=== PATIENT | male | born 1950 | race Caucasian/White ===

== ENCOUNTER 2017-03-28 07:04 | Day surgery (SDC) | payer BC ==
--- NOTE | ~2017-03-28 | EGD ---
EGD REPORT [facility] 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 Estimated blood loss: None. Procedure: Pre-Anesthesia Assessment: - ASA Grade Assessment: II - A patient with mild systemic disease. After obtaining informed consent, the endoscope was passed under direct vision. Throughout the procedure, the patient's blood pressure, pulse, and oxygen saturations were monitored continuously. The Endoscope was introduced through the mouth, and advanced to the second part of duodenum. The GIF [id number] was introduced through the mouth, and advanced to the second part of duodenum. Findings: Endoscopic Finding : A medium-sized, ulcerating mass with and with no stigmata of recent bleeding was found in the lower third of the esophagus, at the gastroesophageal junction and in the cardia. The mass was partially obstructing and circumferential. The mass was extending from approximately 45 to 52 cm. There appeared to be submucosal infilration into the cardia. The GE junctino was about 47 cm The exam of the stomach was otherwise normal. The examined duodenum was endoscopically normal. Endosonographic Finding : A hypoechoic mass was found in the gastroesophageal junction and in the esophagus extending into the proximal stomach. The mass was encountered at 45 cm from the incisors 53. The lesion was circumferential. The endosonographic borders were well-defined. There was sonographic evidence suggesting invasion into the adventitia (Layer 5). Two abnormal lymph nodes were visualized in the paracardial region (level 16). The largest measured 16 mm. The nodes were hypoechoic. There was no sign of significant endosonographic abnormality in the entire pancreas. The pancreas was well visualized, the pancreatic duct EGD REPORT [address] [place]. [address] NAME: TELLY RILEY : [birth year] STATUS : REG [facility] PAT#: [id number] AGE: 66 ADM/REG DATE : 03/28/17 MR#: [id number] REPORT SERV DATE: 03/28/17 DICTATED BY: NEO YOUNG DATE: 03/28/17 REPORT STATUS : Draft TRANSCRIBED BY: [employer] DATE: 03/28/17 was well visualized from ampulla to tail, the pancreatic duct was regular in contour. There was no sign of significant endosonographic abnormality in the common bile duct. An unremarkable gallbladder was identified. There was no sign of significant endosonographic abnormality in the examined duodenum. Impression: - Partially obstructing esophageal tumor was found in the lower third of the esophagus, at the gastroesophageal junction and in the cardia. - Normal examined duodenum. - A mass was found in the gastroesophageal junction and in the esophagus. This was staged T3 N1 Mx by endosonographic criteria. - Two abnormal lymph nodes were visualized in the paracardial region (level 16). - There was no sign of significant pathology in the entire pancreas. - There was no sign of significant pathology in the common bile duct. - There was no sign of significant pathology in the examined duodenum. Recommendation: - Return to previous diet. - Continue present medications. - Return to referring physician. Procedure Code(s): --- Professional --- 98986, Esophagogastroduodenoscopy, flexible, transoral; with endoscopic ultrasound examination, including the esophagus, stomach, and either the duodenum or a surgically altered stomach where the jejunum is examined distal to the anastomosis Diagnosis Code(s): --- Professional --- D49.0, Neoplasm of unspecified behavior of digestive system K22.8, Other specified diseases of esophagus I89.9, Noninfective disorder of lymphatic vessels and lymph nodes, unspecified C15.9, Malignant neoplasm of esophagus, unspecified CPT copyright 2013 [employer]. All rights reserved. The codes documented in this report are preliminary and upon deputy clerk review may be revised to meet current compliance requirements. EGD REPORT [facility] [address] [address] NAME: TELLY RILEY : [birth year] STATUS : REG [facility] PAT#: [id number] AGE: 66 ADM/REG DATE : 03/28/17 MR#: [id number] REPORT SERV DATE: 03/28/17 DICTATED BY: NEO YOUNG DATE: 03/28/17 REPORT STATUS : Draft TRANSCRIBED BY: [employer] DATE: 03/28/17 NEO YOUNG 03/28/2017 9:17 AM Number of Addenda: 0 Note Initiated On: 03/28/2017 8:43 AM Scope Withdrawal Time 0 hours 0 minutes [address] [place], [place] [address] [address]
[~2017-03-28 07:04] MED LIST: PROTONIX PO
[2017-05-30] MEDS ORDERED: ELIQUIS 5 MG TAB5 MG PO (09:43)
[2017-06-06] MEDS ORDERED: SUCR PO (11:22)
[2017-07-07] MEDS ORDERED: ULTRAM50 PO (09:06)
[2017-07-14] MEDS ORDERED: LEVAQUIN750 MG PO (11:08)
[2017-07-14] MEDS ORDERED: NORCO1 TA1 PO (11:08)
[2017-08-04] MEDS ORDERED: PEP20 PO (09:00)
== END 2017-03-28 23:59 | disposition home or self-care (01) ==
LOC: DMU 07:04
PROVIDERS: Internal Medicine Gastroenterology
PROC: 0DJ08ZZ Inspection of Upper Intestinal Tract, Via Natural or Artificial Opening Endoscopic (ICD-10-PCS; principal; 2017-03-28 13:00)
DX: D49.0 Neoplasm of unspecified behavior of digestive system (principal); K22.8 Other specified diseases of esophagus; I89.9 Noninfective disorder of lymphatic vessels and lymph nodes, unspecified; K57.30 Diverticulosis of large intestine without perforation or abscess without bleeding; N40.0 Benign prostatic hyperplasia without lower urinary tract symptoms; R91.1 Solitary pulmonary nodule; C16.9 Malignant neoplasm of stomach, unspecified; Z88.2 Allergy status to sulfonamides
CPT/HCPCS: 78815; A9552; C1725

== ENCOUNTER 2017-07-11 08:37 | Day surgery (SDC) | payer BC ==
[~2017-07-11] VITALS: Ht 185.4 cm; Wt 79.8 kg
--- NOTE | ~2017-07-11 | PREOPHP ---
PreOp History and Physical [place] [id number] [facility] [place]. [address] NAME: KE RICHMOND : [birth year] STATUS : PRE [facility] PAT#: [id number] AGE: 66 ADM/REG DATE : MR#: [id number] REPORT SERV DATE: 07/11/17 DICTATED BY: YARY LAU III DATE: 06/25/17 REPORT STATUS : Draft TRANSCRIBED BY: [employer] DATE: 06/25/17 HISTORY OF PRESENT ILLNESS: This 66-year-old male comes to the operating room for Cut Off Simba esophagogastrectomy for a T3 N1 esophageal cancer. The patient presented in March of this year with severe dysphagia. His workup at that time showed a distal esophageal cancer, T3 N1 M0 by EUS, with extension into the stomach. The patient has completed chemotherapy and radiation therapy. He has had a good response to treatment both clinically, endoscopically, and radiographically. He has no evidence for metastatic disease. He comes now for definitive Cut Off Simba esophagogastrectomy. The fact that this is a major operation with high risk for morbidity and mortality has been fully and completely explained to patient at length prior to surgery. PAST MEDICAL HISTORY: Essentially unremarkable otherwise. PAST SURGICAL HISTORY: Includes cataract surgery. FAMILY HISTORY: Positive for breast cancer. MEDICATIONS: Pantoprazole. ALLERGIES: SULFA AND FINASTERIDE. PHYSICAL EXAMINATION: GENERAL: This is a male, in no acute distress. He is alert, oriented x3. HEENT: Unremarkable. Cranial nerves 2 through 12 normal. LUNGS: Clear. CARDIAC: Normal. ABDOMEN: Soft. Nontender. No masses. EXTREMITIES: Normal. VITAL SIGNS: Blood pressure 105/66, temperature 98.1. LABORATORY DATA: Previous workup showed evidence for a T3 N1 M0 esophageal cancer involving the distal esophagus extending into the cardia. After chemotherapy and radiation therapy, repeat endoscopy shows only thickening of this area with biopsies being negative for malignancy. PET scan shows no evidence for regional or distant disease. ASSESSMENT: A 66-year-old male with distal esophageal cancer, status post chemotherapy and radiation therapy. PLAN: The patient comes to the operating room now for Mat Simba esophagogastrectomy. The fact that this is a major operation with high risk for morbidity and mortality has been fully and completely explained to the patient's at length on several occasions prior to surgery. The procedure, risks, benefits, and alternatives, including, but not limited to the risk for bleeding, infection, enterotomy, injury to abdominal structure, postop small bowel obstruction, ileus, incisional hernia, dehiscence, anastomotic leak, resulting in sepsis and , gastroparesis, gastric bowel obstruction, complications including obstruction or leakage from the pyloroplasty site, complications related to his feeding tube including leaking or bleeding or migration, prolonged ventilator dependency. The fact that PreOp History and Physical [address] [address] NAME: KE RICHMOND : [birth year] STATUS : PRE [facility] PAT#: [id number] AGE: 66 ADM/REG DATE : MR#: [id number] REPORT SERV DATE: 07/11/17 DICTATED BY: YARY LAU III DATE: 06/25/17 REPORT STATUS : Draft TRANSCRIBED BY: NANCY DATE: 06/25/17 his nutritional habits will be altered permanently and unforeseen complications including deep venous thrombosis, pulmonary embolus, myocardial infarction, stroke, pneumonia, , have been fully and completely explained to the patient and his prior to surgery. The fact this is a major operation with high risk for morbidity and mortality have been explained. The patient and his had questions, which were answered. They clearly understand the risks and agreed to surgery as planned. JITENDRA/NANCY Yary Lau III, M.D. / [id number] CC: MD Sp Francois MD
--- NOTE | ~2017-07-11 | OP ---
Record Of Operation [facility] [address]. [address] NAME: KE RILEY : [birth year] STATUS : [facility]#: [id number] AGE: 66 ADM/REG DATE : 07/11/17 MR#: [id number] REPORT SERV DATE: 07/11/17 DICTATED BY: JUSTYN BLISS DATE: 07/11/17 REPORT STATUS : Draft TRANSCRIBED BY: MODL DATE: 07/11/17 DATE OF PROCEDURE: 07/11/2017 TITLE OF OPERATION: Cystourethroscopy, left retrograde pyelogram, left ureteroscopy, placement of a 6 x 28 left ureteral stent. PREOPERATIVE DIAGNOSIS: Left hydronephrosis. POSTOPERATIVE DIAGNOSIS: Left hydronephrosis. INDICATIONS: Mr. Riley is a 66-year-old male with history of gastric cancer, status post radiation. He is going to have a combined abdominal thoracic procedure with Dr. Sesay and Dr. Calle. He has new onset left flank pain with hydronephrosis. He has had no hematuria. He is here for endoscopic evaluation. ANESTHESIA: General. COMPLICATIONS: None. IMPLANTS: 1. 18-Comoran coude catheter. 2. 6 x 28 left ureteral stent. SPECIMENS: Urine for cytology. NARRATIVE: The patient was brought to the operating room, identified by his wristband. General anesthesia was induced. Levaquin was given for preoperative antibiotics. He was placed in dorsal lithotomy position and prepped and draped in sterile fashion. A cystoscope was placed into his urethra and into his bladder. 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 The left ureteral orifice was identified and cannulated with a 5-Comoran open-ended catheter. Retrograde pyelogram was shot, which demonstrated a J-hook to the distal left ureter as well as a tortuous UPJ. I was able to advance an angled Glidewire past the distal J-hook into the ureter. I placed a 5-Comoran open-ended catheter over the Glidewire and advanced this to the level of the UPJ. I was able to finally get a Sensor wire up into the kidney after much struggle. However, I was unable to advance anything at all over the wire. Retrograde pyelogram was shot, which demonstrated retained contrast in the renal pelvis consistent with a UPJ obstruction. There was no sinister findings of the ureter at all. A flexible ureteroscope was placed over the wire into the proximal ureter. I was then able to guide past this area of obstruction with direct vision either. Urine cytology was sent. I placed a 6 x 28 ureteral stent over the wire and was able to barely get this past this area of obstruction into the renal pelvis. The proximal coil was not a great coil but was the first thing we could get into the renal pelvis other than a wire. The distal coil of the stent was then coiled in the bladder. The scope was removed. An 18-Comoran coude catheter was placed. The balloon was inflated to 10 mL of sterile water. It will be removed in the recovery room. I will plan to repeat this exercise in one week to see if we can get up there and confirm that he does not have Record Of Operation [address] [address] NAME: KE RILEY : [birth year] STATUS : [facility] PAT#: [id number] AGE: 66 ADM/REG DATE : 07/11/17 MR#: [id number] REPORT SERV DATE: 07/11/17 DICTATED BY: JUSTYN BLISS DATE: 07/11/17 REPORT STATUS : Draft TRANSCRIBED BY: NANCY DATE: 07/11/17 recurrent gastric cancer in his urinary tract. If not, he will need to have a pyeloplasty in the future. I am unsure if this to be done at the same time with Dr. Calle and Dr. Sesay' procedures or at a later date. Regardless, I will plan on placing the stent to keep his kidney protected in the interim. PATITO/NANCY Justyn Bliss MD / [id number] CC: MD Sp Francois MD
[~2017-07-11 08:37] MED LIST changes: +ELIQUIS 5 MG TAB5 MG PO; +SUCR PO; +ULTRAM50 PO
[2017-07-14] MEDS ORDERED: NORCO1 TA1 PO (11:08)
[2017-07-14] MEDS ORDERED: LEVAQUIN750 MG PO (11:08)
== END 2017-07-11 17:17 | disposition home or self-care (01) ==
LOC: SDC 08:37
PROVIDERS: Urology
PROC: BT1FYZZ Fluoroscopy of Left Kidney, Ureter and Bladder using Other Contrast (ICD-10-PCS; 2017-07-11)
PROC: 0T778DZ Dilation of Left Ureter with Intraluminal Device, Via Natural or Artificial Opening Endoscopic (ICD-10-PCS; principal; 2017-07-11 10:15)
DX: N13.30 Unspecified hydronephrosis (principal); I48.91 Unspecified atrial fibrillation; Z86.718 Personal history of other venous thrombosis and embolism; Z85.01 Personal history of malignant neoplasm of esophagus; Z88.2 Allergy status to sulfonamides; Z98.890 Other specified postprocedural states; Z79.899 Other long term (current) drug therapy; Z98.41 Cataract extraction status, right eye; Z98.42 Cataract extraction status, left eye; Z96.1 Presence of intraocular lens
CPT/HCPCS: 36415; 74420; 86850; 86900; 86901; 88112; C1758; C1769; C2617; J2250; J2405; J3010; Q9967